=== PATIENT | male | born 1965 ===

== ENCOUNTER 2024-06-13 01:04 | Outpatient (CLI) | payer OTHER, SELFPAY ==
[2024-06-13] MEDS: Normal Saline - Diluent 50 ML VIAL IJ (09:23)
[2024-06-13] MEDS: Omnipaque 350 MG/ML 500 ML BTL-Imaging package 100 ML IJ (09:31)
--- NOTE | 2024-06-13 09:38 | DI.CT_ITS ---
Exam(s) CT ABDOMEN PELVIS W EXAM: CT ABDOMEN PELVIS W CLINICAL HISTORY: LLQ pain with umbilical inguinal hernia R10.32 LLQ PAIN. TECHNIQUE: Imaging Protocol: Axial computed tomography images with coronal and sagittal reformatted images were created and reviewed CONTRAST MATERIAL: Intravenous: Omnipaque 350 Contrast volume:100 ml Oral: yes / COMPARISON: No exams were available for comparison FINDINGS: ABDOMEN and PELVIS: Lung Bases: No acute findings. Liver: Normal density. Few liver cysts are noted. No follow-up recommended. No suspicious mass. Gallbladder and biliary tract: No radiodense calculus. No biliary dilation. Pancreas: Normal density. No abnormal calcifications or inflammatory process. No evidence of mass. Spleen: Normal. Kidneys: Normal size, contour and axis. No radiodense stones. No obstructive uropathy. Right renal cyst. No follow-up recommended. No suspicious masses seen. Adrenal glands: No masses seen. Vasculature: Abdominal aorta non-dilated. Soft tissues: Small fatty umbilical hernia measuring 19 x 16 by he waist 13 millimeters. Minimal jaycee ateral inguinal hernias. Bladder: Mild diffuse gross wall thickening. No calculi.No focal mass. Bowel: No obstruction. No bowel wall thickening. Appendix normal. Peritoneal cavity: No ascites. No focal collection. No mesenteric inflammatory response. Bones: Unremarkable for age. Reproductive organs: Prostate slightly enlarged.. Large left hydrocele. Lymph nodes: No pathologically enlarged lymph nodes. IMPRESSION:: Small fatty containing umbilical hernia. Large left hydrocele. RADIATION DOSE DELIVERED: Total DLP DATA REPOSITORY: All CT scans at this facility are submitted to the National Radiology Data Registry (NRDR) Dose Index Registry (DIR) with the [employer] ([employer]). RADIATION OPTIMIZATION: All CT scans at this facility use at least one of these dose optimization te chniques: automated exposure control; mA and/or kV adjustment per patient size (includes targeted exa ms where dose is matched to clinical indication); or iterative reconstruction.
[2024-06-13 10:41] LABS: CREATININE 1.3 mg/dL (0.70-1.30); Estimated GFR 62.89 (mL/min/1.73m2)
== END 2024-06-13 01:24 ==
LOC: DI 01:04
PROVIDERS: PCP Internal Medicine; Visit Provider Surgery
DX: K42.9 Umbilical hernia without obstruction or gangrene; N43.2 Other hydrocele
CPT/HCPCS: 74177; 82565